=== PATIENT | male | born 1975 | race Caucasian/White ===

== ENCOUNTER → 2017-12-15 | Outpatient (CLI) | payer BC ==
[~2017-12-15] MED LIST: NAPR-695 PO
--- NOTE | 2017-12-15 11:31 | CARD ---
MR#: [id number] Date of Study: 12/15/2017 Ordering Physician: RICKIE GLOVER, Referring Physician: RICKIE GLOVER, Tech: Odalys Vaz APPROVED REPORT INDICATION Chest pressure PROCEDURE The patient underwent an Exercise Stress Test using the David Protocol. Blood pressure, heart rate, a nd EKG were monitored. An Echocardiogram was performed by arcade game technician in four stages in quad fashion. At peak stress four se lected images were obtained and placed side by side with resting images for comparison. STRESS ECHO FINDINGS The resting Echocardiogram showed normal left ventricular systolic contractility with an estimated Ej ection Fraction of about 60 %. The Resting Echocardiogram showed normal augmentation of myocardial wall segments using a 16 segment model. The Stress Echocardiogram showed normal augmentation of myocardial wall segments using a 16 segment m herber. The Stress Echocardiogram left ventricular systolic contractility has an estimated Ejection Fraction of about 70%. Test Type: Exercise Stress Nurse/Tech: Mariya Burrows RN Test Indications: Chest pressure Cardiac History and Allergies: No known cardiac Medications: See EMR Medical History: See EMR Resting ECG: SR Resting Heart Rate: 73 bpm Resting Blood Pressure: 113/54mmHg Pretest Chest Pain: No chest pain Nurse/Tech Notes S1,S2 and lungs clear to auscultation. Stress Symptoms No chest pain or symptoms. POST EXERCISE Reason for Termination: Reached target heart rate Target HR: Yes Max HR: 182 bpm 102% of Maximum Predicted HR: 178 bpm Exercise duration: 10:05 min:sec, 4 Stage Exercise capacity: 12.8METs Max Blood Pressure: 153/66mmHg Blood Pressure response to exercise: Normal blood pressure response during stress. Heart Rate response to exercise: WNL Chest Pain: No. Arrhythmia: No. ST Change: No. INTERPRETATION Stress EKG Conclusion: Baseline EKG showed sinus rhythm. No ischemic changes at peak stress. No arr hythmias. Preliminary Notification Critical Value: No <Conclusion> Treadmill exercise stress echocardiogram did not show any evidence of ischemia or infarct. Normal left ventricle systolic function with ejection fraction estimated at 60%. Patient had good activity tolerance. Low risk for cardiac events. Signed by : Hal Tobias, Electronically Approved : 12/15/2017 11:31:23
== END | disposition home or self-care (01) ==
LOC: NM 09:00
PROVIDERS: ATTEND Internal Medicine Cardiovascular Disease
DX: R07.89 Other chest pain (principal)
CPT/HCPCS: 36415; 80061; 93017; 93350